=== PATIENT | male | born 1970 | race Two or more races ===

== ENCOUNTER 2022-02-03 13:54 | Outpatient (CLI) | payer OTHER | END 2022-02-03 23:00 | disposition home or self-care (01) | LOC: LAB 13:54 | PROVIDERS: ATTEND Urology | DX: R97.20 Elevated prostate specific antigen [PSA] (principal) ==

== ENCOUNTER 2022-02-13 07:15 | Outpatient (CLI) | payer OTHER | END 2022-02-13 07:27 | disposition home or self-care (01) | LOC: SONOGRAMA 07:15 | PROVIDERS: ATTEND Urology | DX: C61 Malignant neoplasm of prostate (principal); N40.0 Benign prostatic hyperplasia without lower urinary tract symptoms ==